=== PATIENT | male | born 1945 | race African-American/Black ===

== ENCOUNTER 2022-02-21 19:25 | Inpatient (IN) ==
--- NOTE | 2022-02-21 19:51 | DR.SOBA ---
HPI Time Seen Time Seen by Provider: 02/21/22 19:51 Reviewed Nurses Notes Reviewed: Yes PE Vital Signs Vitals: Temperature 98.9 F Pulse Rate 72 Respiratory Rate 22 Blood Pressure 140/69 O2 Sat by Pulse Oximetry 96 ROR Labs Reviewed Result Diagrams: 02/21/22 19:50 02/21/22 19:50 Laboratory: WBC 5.4 X10^3/uL (3.6-10.0) 02/21/22 19:50 RBC 3.93 X10^6/uL (4.7-6.0) L 02/21/22 19:50 Hgb 11.6 g/dL (13.5-18.0) L 02/21/22 19:50 Hct 33.2 % (42.0-54.0) L 02/21/22 19:50 MCV 84.5 fL (80.0-100.0) 02/21/22 19:50 MCH 29.6 pg (27.0-34.0) 02/21/22 19:50 MCHC 35.0 g/dL (33.0-35.0) 02/21/22 19:50 RDW 20.4 % (11.6-16.5) H 02/21/22 19:50 Plt Count 345 X10^3/uL (150.0-450.0) 02/21/22 19:50 Plt Count Comment Adequate (ADEQUATE) 02/21/22 19:50 MPV 8.0 fL (7.4-11.0) 02/21/22 19:50 Neut % (Auto) 61.1 % (42.0-75.0) 02/21/22 19:50 Lymph % (Auto) 34.0 % (21.0-51.0) 02/21/22 19:50 [place] % (Auto) 3.7 % (0.0-13.0) 02/21/22 19:50 Eos % (Auto) 1.2 % (0.9-2.9) 02/21/22 19:50 Baso % (Auto) 0 % (0.2-1.0) L 02/21/22 19:50 Neut # (Auto) 3.3 x10^3/uL (2.2-4.8) 02/21/22 19:50 Lymph # (Auto) 1.9 X10^3/uL (1.3-2.9) 02/21/22 19:50 [place] # (Auto) 0.2 x10^3/uL (0.3-0.8) L 02/21/22 19:50 Eos # (Auto) 0.1 x10^3/uL (0.0-0.2) 02/21/22 19:50 Baso # (Auto) 0.0 X10^3/uL (0.0-0.1) 02/21/22 19:50 Absolute Nucleated RBC 0.2 /100WBC 02/21/22 19:50 Plt Morphology Comment Normal (NORMAL) 02/21/22 19:50 RBC Morphology Abnormal (NORMAL) 02/21/22 19:50 Anisocytosis 1+ A 02/21/22 19:50 Target Cells 3+ A 02/21/22 19:50 D-Dimer 2.07 ug/ml (0.0-0.57) H 02/21/22 19:50 Sample Site Rrad 02/21/22 20:03 ABG pH 7.580 (7.35-7.45) H* 02/21/22 20:03 ABG pCO2 29.0 mmHg (35.0-45.0) L 02/21/22 20:03 ABG pO2 53.0 mmHg (80.0-100.0) L 02/21/22 20:03 ABG HCO3 27.2 mmol/L (22-26) H 02/21/22 20:03 ABG O2 Saturation 92.0 % (90-100) 02/21/22 20:03 ABG Base Excess 5.8 mmol/L (-2.0-2.0) H 02/21/22 20:03 Giovanni Test Pos 02/21/22 20:03 A-a Gradient 60.0 mmHg 02/21/22 20:03 FiO2 21.0 02/21/22 20:03 Blood Gas Comments Antonella well-mtf 02/21/22 20:03 Sodium 131 mmol/L (136-145) L 02/21/22 19:50 Corrected Sodium TNP 02/21/22 19:50 Potassium 3.9 mmol/L (3.5-5.1) 02/21/22 19:50 Chloride 96 mmol/L (98-107) L 02/21/22 19:50 Carbon Dioxide 26.1 mmol/L (21-32) 02/21/22 19:50 BUN 16 mg/dL (7-18) 02/21/22 19:50 Creatinine 0.91 mg/dL (0.70-1.30) 02/21/22 19:50 Est GFR (MDRD) Af Amer > 60 (>60) 02/21/22 19:50 Est GFR (MDRD) Non-Af > 60 (>60) 02/21/22 19:50 Glucose 98 mg/dL (65-99) 02/21/22 19:50 Calcium 7.8 mg/dL (8.5-10.1) L 02/21/22 19:50 Corrected Calcium 9.2 mg/dL (8.5-10.1) 02/21/22 19:50 Total Bilirubin 3.40 mg/dL (0.2-1.0) H 02/21/22 19:50 AST 161 Units/L (15-37) H 02/21/22 19:50 ALT 127 Units/L (12-78) H 02/21/22 19:50 Alkaline Phosphatase 412 Units/L (46-116) H 02/21/22 19:50 Creatine Kinase 209 Units/L (39-308) 02/21/22 19:50 Troponin I High Sens 14.9 ng/L (4.0-60.0) 02/21/22 19:50 Total Protein 6.2 g/dL (6.4-8.2) L 02/21/22 19:50 Albumin 2.3 g/dL (3.4-5.0) L 02/21/22 19:50 Globulin 3.9 g/dL (2.5-4.5) 02/21/22 19:50 Albumin/Globulin Ratio 0.6 Ratio (1.1-2.1) L 02/21/22 19:50 SARS-CoV-2 (PCR) Negative (NEGATIVE) 02/22/22 00:19 Influenza Type A (PCR) Negative (NEGATIVE) 02/22/22 00:19 Influenza Type B (PCR) Negative (NEGATIVE) 02/22/22 00:19 RSV (PCR) Negative (NEGATIVE) 02/22/22 00:19 Opioid Opioid Risk Tool Total: 0 Total Score Risk Category: Low Risk Copyright: Sandeep OCHOA predicting aberrant behaviors Discharge Plan Discharge Plan Patient Disposition: 09 ADMITTED INPATIENT Condition: Stable Orders to Discharge Patient Discharge Orders: Transfer (Routine); Ordered 02/22/22 Ordered By: MOISES COLBERT
[2022-02-21 20:02] LABS: BASOPHILS % (AUTO) 0 % (0.2-1.0)
[2022-02-21 20:05] LABS: EOSINOPHILS # (AUTO) 0.1 x10^3/uL (0.0-0.2); EOSINOPHILS % (AUTO) 1.2 % (0.9-2.9); HEMATOCRIT 33.2 % (42.0-54.0); HEMOGLOBIN 11.6 g/dL (13.5-18.0); LYMPHOCYTES # (AUTO) 1.9 X10^3/uL (1.3-2.9); MEAN CORPUSCULAR HEMOGLOBIN 29.6 pg (27.0-34.0); MEAN CORPUSCULAR VOLUME 84.5 fL (80.0-100.0); MONOCYTES # (AUTO) 0.2 x10^3/uL (0.3-0.8); MONOCYTES % (AUTO) 3.7 % (0.0-13.0); NEUTROPHILS # (AUTO) 3.3 x10^3/uL (2.2-4.8); NEUTROPHILS % (AUTO) 61.1 % (42.0-75.0); RED BLOOD COUNT 3.93 X10^6/uL (4.7-6.0); RED CELL DISTRIBUTION WIDTH 20.4 % (11.6-16.5); WHITE BLOOD COUNT 5.4 X10^3/uL (3.6-10.0)
[2022-02-21 20:06] LABS: ABG BASE EXCESS 5.8 mmol/L (-2.0-2.0); ABG HCO3 27.2 mmol/L (22-26)
[2022-02-21 20:07] LABS: ABG ALLEN TEST POS
[2022-02-21 20:12] LABS: ALANINE AMINOTRANSFERASE 127 Units/L (12-78); ALBUMIN 2.3 g/dL (3.4-5.0); ALKALINE PHOSPHATASE 412 Units/L (46-116); ASPARTATE AMINO TRANSFERASE 161 Units/L (15-37); BLOOD UREA NITROGEN 16 mg/dL (7-18); CALCIUM 7.8 mg/dL (8.5-10.1); CARBON DIOXIDE 26.1 mmol/L (21-32); CHLORIDE 96 mmol/L (98-107); COR CA(FOR HYPOALB) 9.2 mg/dL (8.5-10.1); CREATINE KINASE 209 Units/L (39-308); CREATININE 0.91 mg/dL (0.70-1.30); SODIUM 131 mmol/L (136-145); TOTAL PROTEIN 6.2 g/dL (6.4-8.2); eGFR NON BLACK RACES > 60 (>60)
[2022-02-21 20:15] LABS: PLATELET MORPHOLOGY COMMENT NORMAL (NORMAL); TARGET CELLS 3+
[2022-02-21 20:16] LABS: ANISOCYTOSIS 1+
--- NOTE | 2022-02-21 22:52 | CT ---
HISTORYC/O INCREASING SHORTNESS OF BREATH OVER THE PAST WEEK, STATES IT STARTED BACK IN 12/2021 BUT HAS WORSENEDSTUDYCTA CHESTCOMPARISONChest radiograph 02/21/2022TECHNIQUEMultiple axial images of the chest were obtained from the thoracic inlet to the upper abdomen after the administration of IV contrast. 3D reconstructions utilizing axial MIPS imaging was performed and reviewed. Dose reduction techniques including Automated Exposure Control (AEC) and adjustment of mA and kV were utilized.FINDINGSThe mediastinum does not demonstrate significant pathological lymphadenopathy. There is no paracardial effusion observed. The thoracic aorta is normal in its contour without evidence for aneurysmal dilatation. The central pulmonary arterial system does not demonstrate central filling defects to suggest pulmonary emboli.Evaluation of the lung parenchyma demonstrates emphysematous changes throughout the lungs with scattered interstitial fibrosis. No pneumothorax.. No pulmonary nodule or mass can be identified. The bony thorax is unremarkable in its appearance. The liver appears enlarged. The.IMPRESSIONUnremarkable CTA of the chest.Emphysematous changes throughout the lungs with scattered interstitial fibrosis.HepatomegalyElectronically signed by: Bandar Ramírez (Feb 21, 2022 22:50:48)
[2022-02-22] MEDS ORDERED: CATAPRES TAB 0.2 MG PO ONE (00:58)
[2022-02-22] MEDS ORDERED: CATAPRES TAB 0.2 MG ONE (01:09)
[2022-02-22] MEDS ORDERED: ROCEPHIN VIAL 1 GRAM 1 G in NS 100 ML IV 100 ML IV ONE (02:29)
[2022-02-22] MEDS ORDERED: ROCEPHIN VIAL 1 GRAM ONE (02:39)
[2022-02-22] MEDS ORDERED: NS 50 ML IV 50 ML IV ONE (02:40)
--- NOTE | 2022-02-22 03:47 | RAD ---
HISTORYPT C/O INCREASING SHORTNESS OF BREATH OVER THE PAST WEEK, STATES IT STARTED BACK IN 12/2021 BUT HAS WORSENED Relevant Clinical InformationSTUDYCHEST, 1 VIEWCOMPARISONNoneFINDINGSThe trachea is midline. The cardiac silhouette is unremarkable. The lungs are clear without focal infiltrate or effusion. The there is mild elevation of the right hemidiaphragm the bony thorax is unremarkable.IMPRESSIONNo acute cardiopulmonary findings .Electronically signed by: Bandar Ramírez (Feb 22, 2022 03:46:15)
[2022-02-22 04:41] VITALS: BMI 17.7
[2022-02-22] MEDS: PROVENTIL NEB TX 0.083% 2.5MG/ 3ML NEB SCH ×5 (05:00→20:20)
[2022-02-22] MEDS: NS 1,000 ML IV 1,000 ML IV SCH (06:34)
[2022-02-22 07:03] LABS: BLOOD UREA NITROGEN 17 mg/dL (7-18); CALCIUM 7.7 mg/dL (8.5-10.1); CARBON DIOXIDE 26.9 mmol/L (21-32); CHLORIDE 96 mmol/L (98-107); COR NA(FOR HYPERGLY) 131 mmol/L (136-145); CREATININE 0.92 mg/dL (0.70-1.30); SODIUM 130 mmol/L (136-145); eGFR NON BLACK RACES > 60 (>60)
[2022-02-22 07:07] LABS: BASOPHILS % (AUTO) 0 % (0.2-1.0); EOSINOPHILS % (AUTO) 0.6 % (0.9-2.9); HEMATOCRIT 30.5 % (42.0-54.0); HEMOGLOBIN 10.8 g/dL (13.5-18.0); LYMPHOCYTES % (AUTO) 58.7 % (21.0-51.0); MEAN CORPUSCULAR HEMOGLOBIN 30.1 pg (27.0-34.0); MEAN CORPUSCULAR HGB CONC 35.3 g/dL (33.0-35.0); MEAN CORPUSCULAR VOLUME 85.5 fL (80.0-100.0); MEAN PLATELET VOLUME 8.3 fL (7.4-11.0); MONOCYTES # (AUTO) 0.3 x10^3/uL (0.3-0.8); MONOCYTES % (AUTO) 6.1 % (0.0-13.0); NEUTROPHILS # (AUTO) 1.7 x10^3/uL (2.2-4.8); NEUTROPHILS % (AUTO) 34.6 % (42.0-75.0); RED BLOOD COUNT 3.57 X10^6/uL (4.7-6.0); RED CELL DISTRIBUTION WIDTH 21.4 % (11.6-16.5)
[2022-02-22 07:31] LABS: ANISOCYTOSIS 1+; PLATELET MORPHOLOGY COMMENT NORMAL (NORMAL); TARGET CELLS 3+
[2022-02-22] MEDS: VSL#3 PO SCH (08:27)
[2022-02-22] MEDS: PULMICORT NEB TX 0.5 MG NEB SCH ×2 (08:29→20:20)
[2022-02-22] MEDS ORDERED: K-DUR TAB 20 MEQ PO PRN (08:54)
--- NOTE | 2022-02-22 10:01 | RAD ---
HISTORYAbdominal painSTUDYAcute abdominal fegmpsAZRGICFPPC70/19/2022FINDINGSHeart size is normal. Diana are normal. Lungs are free of acute infiltrates. Abdominal gas pattern is nonspecific and nonobstructive. No abnormal masses or abnormal calcifications are identified. No pneumoperitoneum is present. Contrast is present within the urinary tracts residual to the recent CTA chest.IMPRESSIONUnremarkable acute abdominal seriesElectronically signed by: JESSICA RAYMUNDO (Feb 22, 2022 09:58:49)
[2022-02-22] MEDS: LOVENOX INJ 40 MG SYR SC SCH (10:09)
[2022-02-22] MEDS: NORVASC TAB 5 MG PO SCH (10:09)
[2022-02-22] MEDS: BENICAR TAB 40 MG PO SCH (10:09)
[2022-02-22] MEDS ORDERED: COLACE CAP 100 MG PO ONE (13:36)
[2022-02-22] MEDS ORDERED: LINZESS PO ONE (13:37)
[2022-02-22] MEDS: FORTAZ or TAZICEF VIAL INJ 1 G in NS 100 ML IV 100 ML IV SCH ×2 (13:46→21:00)
[2022-02-22] MEDS ORDERED: FORTAZ or TAZICEF VIAL INJ 1 G in NS 100 ML IV + SPIKE MINIBAG* 100 ML IV SCH (14:00)
[2022-02-22] MEDS ORDERED: ZOFRAN INJ 4 MG VIAL IVP PRN (18:17)
[2022-02-23] MEDS: PROVENTIL NEB TX 0.083% 2.5MG/ 3ML NEB SCH ×6 (00:28→21:01)
[2022-02-23] MEDS: NS 1,000 ML IV 1,000 ML IV SCH ×3 (05:56→07:17)
[2022-02-23] MEDS: FORTAZ or TAZICEF VIAL INJ 1 G in NS 100 ML IV 100 ML IV SCH (05:56)
[2022-02-23 06:10] LABS: BILIRUBIN,URINE 2+ (NEGATIVE); BLOOD/HEMOGLOBIN,URINE 2+ (NEGATIVE); GLUCOSE, URINE NEGATIVE (NEGATIVE); KETONES,URINE 1+ (NEGATIVE); LEUKOCYTE ESTERASE ,URINE 1+ (NEGATIVE); NITRITES,URINE NEGATIVE (NEGATIVE); PROTEIN,URINE 3+ (NEGATIVE); UROBILINOGEN,URINE 2+ (NORMAL)
[2022-02-23 06:21] LABS: BASOPHILS % (AUTO) 0 % (0.2-1.0); EOSINOPHILS # (AUTO) 0.1 x10^3/uL (0.0-0.2); EOSINOPHILS % (AUTO) 1.1 % (0.9-2.9); HEMOGLOBIN 10.6 g/dL (13.5-18.0); LYMPHOCYTES # (AUTO) 2.9 X10^3/uL (1.3-2.9); LYMPHOCYTES % (AUTO) 57.1 % (21.0-51.0); MEAN CORPUSCULAR HEMOGLOBIN 30.2 pg (27.0-34.0); MEAN CORPUSCULAR HGB CONC 35.3 g/dL (33.0-35.0); MEAN CORPUSCULAR VOLUME 85.5 fL (80.0-100.0); MEAN PLATELET VOLUME 8.5 fL (7.4-11.0); MONOCYTES # (AUTO) 0.5 x10^3/uL (0.3-0.8); MONOCYTES % (AUTO) 9.9 % (0.0-13.0); NEUTROPHILS # (AUTO) 1.6 x10^3/uL (2.2-4.8); NEUTROPHILS % (AUTO) 31.9 % (42.0-75.0); RED BLOOD COUNT 3.51 X10^6/uL (4.7-6.0); RED CELL DISTRIBUTION WIDTH 21.5 % (11.6-16.5)
[2022-02-23 06:43] LABS: ALANINE AMINOTRANSFERASE 124 Units/L (12-78); ALBUMIN 2.1 g/dL (3.4-5.0); ALKALINE PHOSPHATASE 377 Units/L (46-116); ASPARTATE AMINO TRANSFERASE 160 Units/L (15-37); BLOOD UREA NITROGEN 16 mg/dL (7-18); CALCIUM 7.6 mg/dL (8.5-10.1); CARBON DIOXIDE 22.8 mmol/L (21-32); CHLORIDE 98 mmol/L (98-107); COR CA(FOR HYPOALB) 9.1 mg/dL (8.5-10.1); CREATININE 0.94 mg/dL (0.70-1.30); SODIUM 129 mmol/L (136-145); TOTAL PROTEIN 5.6 g/dL (6.4-8.2); eGFR NON BLACK RACES > 60 (>60)
[2022-02-23 06:48] LABS: APPEARANCE,URINE HAZY (CLEAR); COLOR,URINE AMBER (YELLOW)
[2022-02-23 06:49] LABS: BACTERIA,URINE TRACE /HPF (NEGATIVE); SQUAMOUS EPITHELIAL CELL,UR RARE /HPF (NEGATIVE)
[2022-02-23 07:18] LABS: ANISOCYTOSIS 1+; OVALOCYTES 3+; PLATELET MORPHOLOGY COMMENT NORMAL (NORMAL)
[2022-02-23] MEDS: PULMICORT NEB TX 0.5 MG NEB SCH ×2 (08:15→21:00)
[2022-02-23] MEDS: VSL#3 PO SCH (08:35)
[2022-02-23] MEDS: NORVASC TAB 5 MG PO SCH (08:35)
[2022-02-23] MEDS: BENICAR TAB 40 MG PO SCH (08:35)
[2022-02-23] MEDS: LOVENOX INJ 40 MG SYR SC SCH (08:53)
[2022-02-23] MEDS ORDERED: LINZESS PO SCH (09:00)
[2022-02-23] MEDS ORDERED: SOLU-Medrol 40 MG VIAL IVP SCH (09:00)
[2022-02-23] MEDS: BACTRIM DS TAB PO SCH ×2 (09:38→20:30)
--- NOTE | 2022-02-23 10:30 | US ---
HISTORYABD PAIN/BLOATING/SWELLING, NAUSEASTUDYLIVERCOMPARISONChest CT 02/21/2022TECHNIQUEEighty-four images made by the chinchilla machine operator. Hyman scale and color-flow images of the right upper quadrant were obtained.FINDINGSDiffuse heterogenous echogenicity is present throughout an enlarged liver. This could represent diffuse medical liver disease or could be a diffuse infiltrative malignancy. Finding corresponds to the heterogenous density seen on the CT from 2 days ago. Two discrete nodules or masses are measured by the technologist. Liver measures over 23 cm. Recommend additional evaluation with a contrasted study; you could do CT with contrast or MRI with contrast. No biliary dilatation. The intrahepatic inferior vena cava was imaged.The visualized hepatic veins are patent with blood flow toward the right atrium. The hepatic artery was patent. The portal vein is patent with blood flow toward the liver.The pancreas is not well identified due to overlying bowel gas.Echogenic areas with shadowing are present compatible with gallstones. No wall thickening or pericholecystic fluid. There is also medium level echogenic debris consistent with sludge. No extrahepatic biliary duct dilatation; common duct is normal.The right kidney is normal in size and echogenicity. No hydronephrosis. Right resistive index measures 0.5. Simple cyst right kidney measures 2 cm.IMPRESSION1. Diffuse abnormal liver; this might represent diffuse malignant infiltration or medical liver disease such as cirrhosis or hepatitis2. Recommend additional evaluation with contrasted CT or contrasted MRI of the liver3. CholelithiasisElectronically signed by: Doyle Waldrop (Feb 23, 2022 10:28:27)
[2022-02-23] MEDS ORDERED: PEPCID TAB 40 MG PO PRN (16:47)
[2022-02-23] MEDS ORDERED: PEPCID TAB 40 MG ONE (16:49)
[2022-02-24] MEDS: PROVENTIL NEB TX 0.083% 2.5MG/ 3ML NEB SCH ×6 (00:16→21:00)
[2022-02-24] MEDS: NS 1,000 ML IV 1,000 ML IV SCH ×2 (05:33→12:28)
[2022-02-24 06:45] LABS: ALANINE AMINOTRANSFERASE 121 Units/L (12-78); ALKALINE PHOSPHATASE 372 Units/L (46-116); ASPARTATE AMINO TRANSFERASE 166 Units/L (15-37); BLOOD UREA NITROGEN 13 mg/dL (7-18); CALCIUM 7.7 mg/dL (8.5-10.1); CARBON DIOXIDE 21.9 mmol/L (21-32); CHLORIDE 98 mmol/L (98-107); COR CA(FOR HYPOALB) 9.3 mg/dL (8.5-10.1); CREATININE 0.99 mg/dL (0.70-1.30); SODIUM 129 mmol/L (136-145); TOTAL PROTEIN 5.5 g/dL (6.4-8.2); eGFR NON BLACK RACES > 60 (>60)
[2022-02-24 07:28] LABS: BASOPHILS % (AUTO) 0 % (0.2-1.0); EOSINOPHILS # (AUTO) 0.1 x10^3/uL (0.0-0.2); HEMATOCRIT 29.8 % (42.0-54.0); HEMOGLOBIN 10.6 g/dL (13.5-18.0); LYMPHOCYTES # (AUTO) 3.2 X10^3/uL (1.3-2.9); LYMPHOCYTES % (AUTO) 59.1 % (21.0-51.0); MEAN CORPUSCULAR HEMOGLOBIN 30.2 pg (27.0-34.0); MEAN CORPUSCULAR HGB CONC 35.5 g/dL (33.0-35.0); MEAN CORPUSCULAR VOLUME 85.1 fL (80.0-100.0); MEAN PLATELET VOLUME 8.8 fL (7.4-11.0); MONOCYTES # (AUTO) 0.4 x10^3/uL (0.3-0.8); MONOCYTES % (AUTO) 8.4 % (0.0-13.0); NEUTROPHILS # (AUTO) 1.7 x10^3/uL (2.2-4.8); NEUTROPHILS % (AUTO) 31.5 % (42.0-75.0); RED CELL DISTRIBUTION WIDTH 21.2 % (11.6-16.5); WHITE BLOOD COUNT 5.4 X10^3/uL (3.6-10.0)
[2022-02-24 07:35] LABS: RED BLOOD COUNT 3.51 X10^6/uL (4.7-6.0)
[2022-02-24 07:39] LABS: ANISOCYTOSIS 1+; PLATELET MORPHOLOGY COMMENT NORMAL (NORMAL); TARGET CELLS 3+
[2022-02-24] MEDS: PULMICORT NEB TX 0.5 MG NEB SCH ×2 (08:22→21:00)
--- NOTE | 2022-02-24 08:54 | DR.PROGNOT ---
Hospital Progress Notes - Progress Note for Day of: Progress Note Date: 02/24/22 - Chief Complaint Chief Complaint: no changes .. same abdominal pain , distention with hepatomegaly and liver dysfunction .. - Past Medical Family Social History Past Med/Fam/Surg Hx: No changes since H&P Allergies: Allergies No Known Drug Allergies Allergy (Verified 02/21/22 19:56) - Review Of Systems ROS: No change since H&P - Vital Signs Vital Signs: Temperature 98.1 F Pulse Rate [Right] 83 Pulse Rate 78 Respiratory Rate 20 Blood Pressure [Left Arm] 142/69 Blood Pressure 140/69 O2 Sat by Pulse Oximetry 94 - Physical Exam Oriented: Normal Eyes: Normal Ear: Normal Nose: Normal Throat: Normal Cardiovascular: Normal : Normal GI:Auscultation: Normal GI: Tenderness: Other (hepatomegaly and small umbilical hernia .. ) Speech Pattern: Clear, Appropriate - Laboratory and Diagnostics Result Diagrams: 02/24/22 05:29 02/24/22 05:29 Labs: Laboratory WBC 5.4 X10^3/uL (3.6-10.0) 02/24/22 05:29 RBC 3.51 X10^6/uL (4.7-6.0) L 02/24/22 05:29 Hgb 10.6 g/dL (13.5-18.0) L 02/24/22 05:29 Hct 29.8 % (42.0-54.0) L 02/24/22 05:29 MCV 85.1 fL (80.0-100.0) 02/24/22 05:29 MCH 30.2 pg (27.0-34.0) 02/24/22 05:29 MCHC 35.5 g/dL (33.0-35.0) H 02/24/22 05:29 RDW 21.2 % (11.6-16.5) H 02/24/22 05:29 Plt Count 339 X10^3/uL (150.0-450.0) 02/24/22 05:29 Plt Count Comment Adequate (ADEQUATE) 02/24/22 05:29 MPV 8.8 fL (7.4-11.0) 02/24/22 05:29 Neut % (Auto) 31.5 % (42.0-75.0) L 02/24/22 05:29 Lymph % (Auto) 59.1 % (21.0-51.0) H 02/24/22 05:29 [place] % (Auto) 8.4 % (0.0-13.0) 02/24/22 05:29 Eos % (Auto) 1.0 % (0.9-2.9) 02/24/22 05:29 Baso % (Auto) 0 % (0.2-1.0) L 02/24/22 05:29 Neut # (Auto) 1.7 x10^3/uL (2.2-4.8) L 02/24/22 05:29 Lymph # (Auto) 3.2 X10^3/uL (1.3-2.9) H 02/24/22 05:29 [place] # (Auto) 0.4 x10^3/uL (0.3-0.8) 02/24/22 05:29 Eos # (Auto) 0.1 x10^3/uL (0.0-0.2) 02/24/22 05:29 Baso # (Auto) 0.0 X10^3/uL (0.0-0.1) 02/24/22 05:29 Absolute Nucleated RBC 0.3 /100WBC 02/24/22 05:29 Total Counted 100 02/24/22 05:29 Neutrophils % (Manual) 77 % (39-76) H 02/24/22 05:29 Lymphocytes % (Manual) 16 % (13-43) 02/24/22 05:29 Monocytes % (Manual) 5 % (4-9) 02/24/22 05:29 Eosinophils % (Manual) 2 % (0-6) 02/24/22 05:29 Plt Morphology Comment Normal (NORMAL) 02/24/22 05:29 RBC Morphology Abnormal (NORMAL) 02/24/22 05:29 Anisocytosis 1+ A 02/24/22 05:29 Target Cells 3+ A 02/24/22 05:29 Ovalocytes 3+ A 02/23/22 05:45 D-Dimer 2.07 ug/ml (0.0-0.57) H 02/21/22 19:50 Sample Site Rrad 02/21/22 20:03 ABG pH 7.580 (7.35-7.45) H* 02/21/22 20:03 ABG pCO2 29.0 mmHg (35.0-45.0) L 02/21/22 20:03 ABG pO2 53.0 mmHg (80.0-100.0) L 02/21/22 20:03 ABG HCO3 27.2 mmol/L (22-26) H 02/21/22 20:03 ABG O2 Saturation 92.0 % (90-100) 02/21/22 20:03 ABG Base Excess 5.8 mmol/L (-2.0-2.0) H 02/21/22 20:03 Giovanni Test Pos 02/21/22 20:03 A-a Gradient 60.0 mmHg 02/21/22 20:03 FiO2 21.0 02/21/22 20:03 Blood Gas Comments Antonella well-mtf 02/21/22 20:03 Sodium 129 mmol/L (136-145) L 02/24/22 05:29 Corrected Sodium TNP 02/24/22 05:29 Potassium 4.1 mmol/L (3.5-5.1) 02/24/22 05:29 Chloride 98 mmol/L (98-107) 02/24/22 05:29 Carbon Dioxide 21.9 mmol/L (21-32) 02/24/22 05:29 BUN 13 mg/dL (7-18) 02/24/22 05:29 Creatinine 0.99 mg/dL (0.70-1.30) 02/24/22 05:29 Est GFR (MDRD) Af Amer > 60 (>60) 02/24/22 05:29 Est GFR (MDRD) Non-Af > 60 (>60) 02/24/22 05:29 Glucose 81 mg/dL (65-99) 02/24/22 05:29 Calcium 7.7 mg/dL (8.5-10.1) L 02/24/22 05:29 Corrected Calcium 9.3 mg/dL (8.5-10.1) 02/24/22 05:29 Iron 104 ug/dL (50-175) 02/22/22 06:46 Transferrin 220 mg/dL (202-364) 02/22/22 06:46 Ferritin 528 ng/mL (26-388) H 02/22/22 06:46 Total Bilirubin 3.30 mg/dL (0.2-1.0) H 02/24/22 05:29 AST 166 Units/L (15-37) H 02/24/22 05:29 ALT 121 Units/L (12-78) H 02/24/22 05:29 Alkaline Phosphatase 372 Units/L (46-116) H 02/24/22 05:29 Creatine Kinase 209 Units/L (39-308) 02/21/22 19:50 Troponin I High Sens 14.9 ng/L (4.0-60.0) 02/21/22 19:50 Total Protein 5.5 g/dL (6.4-8.2) L 02/24/22 05:29 Albumin 2.0 g/dL (3.4-5.0) L 02/24/22 05:29 Globulin 3.5 g/dL (2.5-4.5) 02/24/22 05:29 Albumin/Globulin Ratio 0.6 Ratio (1.1-2.1) L 02/24/22 05:29 Vitamin B12 1218 pg/mL (193-986) H 02/22/22 06:46 Folate 14.2 ng/mL (>8.6) 02/22/22 06:46 Specimen Type Clean catch urine 02/23/22 05:52 Urine Color Lurdes (YELLOW) 02/23/22 05:52 Urine Appearance Hazy (CLEAR) 02/23/22 05:52 Urine pH 6.0 (5.0 - 8.0) 02/23/22 05:52 Ur Specific [place] 1.020 (1.000-1.030) 02/23/22 05:52 Urine Protein 3+ (NEGATIVE) 02/23/22 05:52 Urine Glucose (UA) Negative (NEGATIVE) 02/23/22 05:52 Urine Ketones 1+ (NEGATIVE) 02/23/22 05:52 Urine Blood 2+ (NEGATIVE) 02/23/22 05:52 Urine Nitrite Negative (NEGATIVE) 02/23/22 05:52 Urine Bilirubin 2+ (NEGATIVE) 02/23/22 05:52 Urine Urobilinogen 2+ (NORMAL) 02/23/22 05:52 Ur Leukocyte Esterase 1+ (NEGATIVE) 02/23/22 05:52 Urine RBC 3-5 /HPF (0-3) A 02/23/22 05:52 Urine WBC 0-2 /HPF (0-5) 02/23/22 05:52 Ur Squamous Epith Cells Rare /HPF (NEGATIVE) 02/23/22 05:52 Amorphous Sediment 1+ /HPF (NEGATIVE) 02/23/22 05:52 Urine Bacteria Trace /HPF (NEGATIVE) 02/23/22 05:52 Ur Culture Indicated? No/not indicated 02/23/22 05:52 Stool Description 250g liquid brown 02/22/22 20:01 Stl Occult Blood (IFOB) Positive (NEGATIVE) A 02/22/22 20:01 SARS-CoV-2 (PCR) Negative (NEGATIVE) 02/22/22 00:19 Influenza Type A (PCR) Negative (NEGATIVE) 02/22/22 00:19 Influenza Type B (PCR) Negative (NEGATIVE) 02/22/22 00:19 RSV (PCR) Negative (NEGATIVE) 02/22/22 00:19 - Assessment and Plan 2: hepatomegaly rule out primary malignanccy .( h/o hepatitis C ). gallstones . COPD . mild anemia .. awaiting MRI . will need liver Bx
[2022-02-24] MEDS ORDERED: NS 100 ML IV 100 ML ONE (10:18)
[2022-02-24] MEDS: BACTRIM DS TAB PO SCH ×2 (10:34→20:06)
[2022-02-24] MEDS: VSL#3 PO SCH (10:35)
[2022-02-24] MEDS: LOVENOX INJ 40 MG SYR SC SCH (10:36)
[2022-02-24] MEDS: BENICAR TAB 40 MG PO SCH (10:36)
[2022-02-24] MEDS: NORVASC TAB 5 MG PO SCH (10:36)
--- NOTE | 2022-02-24 16:48 | MRI ---
MRI ABDOMEN W/WO CONTRASTClinical indication: Abdominal pain.Procedure: Multiplanar multi sequence MRI of the abdomen were obtained with and without the administration of intravenous contrast according to standard departmental protocol.Contrast: 20 cc of MultiHanceComparisons:Ultrasound February 22, 2022, CT chest February 21, 2022.Findings:MRI of the abdomen without contrast: Small volume mesenteric edema/ascites. No significant ascites.MRI of the abdomen with contrast: The liver is massively enlarged essentially completely replaced by innumerable heterogeneously enhancing masses. Liver measures 27 cm in craniocaudal dimension. Spleen not enlarged. What is possibly the gallbladder appears to be elongated and contains sludge. This measures 4.6 cm in axial dimension. No definite gallstones. Gallbladder sludge is suspected. There is intrahepatic ductal dilatation which is most notable involving the left liver. This may be secondary to less metastatic involvement of the left liver in general. The common bile duct is difficult to visualize and may be obstructed at the region just distal to its confluence. This can best be appreciated on series 06/10/2002. Visualized portions of the pancreas are within normal limits. Adrenal glands are normal. Kidneys demonstrate normal cortical medullary differentiation. No hydronephrosis. Infrarenal abdominal aortic aneurysm measuring 2.8 cm.Impression:1.Massive hepatomegaly with essentially near complete replacement of the hepatic parenchyma with heterogeneously enhancing masses. This will likely require biopsy for definitive diagnosis however cholangiocarcinoma should be considered given the ductal obstruction. The common bile duct is not well seen and there is likely obstruction of this structure also evidence by intrahepatic ductal dilatation.2. Mild aneurysmal dilatation of the infrarenal abdominal aorta.Electronically signed by: JAZLYN VARELA (Feb 24, 2022 16:47:31)
[2022-02-24] MEDS: COLACE CAP 100 MG PO SCH (20:06)
[2022-02-24] MEDS: MIRALAX POWDER (1 DOSE 17 G) PO SCH (20:06)
[2022-02-25] MEDS: PROVENTIL NEB TX 0.083% 2.5MG/ 3ML NEB SCH ×6 (00:48→21:20)
[2022-02-25] MEDS: NS 1,000 ML IV 1,000 ML IV SCH ×4 (05:41→16:40)
[2022-02-25 06:08] LABS: ALANINE AMINOTRANSFERASE 124 Units/L (12-78); ALKALINE PHOSPHATASE 372 Units/L (46-116); ASPARTATE AMINO TRANSFERASE 182 Units/L (15-37); BLOOD UREA NITROGEN 14 mg/dL (7-18); CALCIUM 7.6 mg/dL (8.5-10.1); CARBON DIOXIDE 24.5 mmol/L (21-32); CHLORIDE 99 mmol/L (98-107); COR CA(FOR HYPOALB) 9.2 mg/dL (8.5-10.1); CREATININE 1.09 mg/dL (0.70-1.30); SODIUM 130 mmol/L (136-145); TOTAL PROTEIN 5.5 g/dL (6.4-8.2); eGFR NON BLACK RACES > 60 (>60)
[2022-02-25 06:11] LABS: BASOPHILS % (AUTO) 0 % (0.2-1.0); EOSINOPHILS # (AUTO) 0.1 x10^3/uL (0.0-0.2); EOSINOPHILS % (AUTO) 1.1 % (0.9-2.9); HEMATOCRIT 30.8 % (42.0-54.0); HEMOGLOBIN 10.9 g/dL (13.5-18.0); LYMPHOCYTES % (AUTO) 54.3 % (21.0-51.0); MEAN CORPUSCULAR HEMOGLOBIN 30.1 pg (27.0-34.0); MEAN CORPUSCULAR HGB CONC 35.4 g/dL (33.0-35.0); MEAN CORPUSCULAR VOLUME 85.1 fL (80.0-100.0); MEAN PLATELET VOLUME 8.2 fL (7.4-11.0); MONOCYTES # (AUTO) 0.4 x10^3/uL (0.3-0.8); MONOCYTES % (AUTO) 7.9 % (0.0-13.0); NEUTROPHILS % (AUTO) 36.7 % (42.0-75.0); RED BLOOD COUNT 3.62 X10^6/uL (4.7-6.0); RED CELL DISTRIBUTION WIDTH 22.2 % (11.6-16.5); WHITE BLOOD COUNT 5.5 X10^3/uL (3.6-10.0)
[2022-02-25 06:40] LABS: PLATELET MORPHOLOGY COMMENT NORMAL (NORMAL)
[2022-02-25 06:42] LABS: ANISOCYTOSIS 2+; TARGET CELLS 3+
[2022-02-25] MEDS ORDERED: TORADOL 30 MG VIAL IVP PRN (07:45)
[2022-02-25] MEDS: PULMICORT NEB TX 0.5 MG NEB SCH ×2 (08:05→21:20)
[2022-02-25 08:16] LABS: INR 1.27 (0.8-1.3)
[2022-02-25] MEDS ORDERED: ZOFRAN INJ 4 MG VIAL ONE (08:59)
[2022-02-25] MEDS ORDERED: PEPCID 20 MG VIAL ONE (08:59)
[2022-02-25] MEDS ORDERED: BRIDION ONE (08:59)
[2022-02-25] MEDS ORDERED: AMIDATE INJ 40 MG VIAL ONE (08:59)
[2022-02-25] MEDS ORDERED: ZEMURON 100 MG VIAL ONE (08:59)
[2022-02-25] MEDS ORDERED: VERSED ONE (09:00)
[2022-02-25] MEDS ORDERED: FENTANYL VIAL INJ 100 mcg ONE (09:00)
[2022-02-25] MEDS: ANCEF VIAL 1 GRAM ONE ×2 (09:51→14:12)
[2022-02-25] MEDS ORDERED: LR 1,000 ML IV 1,000 ML IV ONE (09:51)
[2022-02-25] MEDS ORDERED: NS 100 ML IV 100 ML ONE (09:52)
[2022-02-25] MEDS ORDERED: XYLOCAINE JELLY TOP ONE (10:31)
[2022-02-25] MEDS ORDERED: SUPRANE ONE (10:31)
[2022-02-25] MEDS ORDERED: BACTROBAN TOPICAL OINT ONE (10:59)
[2022-02-25] MEDS: VSL#3 PO SCH (14:12)
[2022-02-25] MEDS: LOVENOX INJ 40 MG SYR SC SCH (14:13)
[2022-02-25] MEDS: NORVASC TAB 5 MG PO SCH (14:13)
[2022-02-25] MEDS: BENICAR TAB 40 MG PO SCH (14:14)
[2022-02-25] MEDS: BACTRIM DS TAB PO SCH ×2 (14:14→21:36)
[2022-02-25 15:12] LABS: RED BLOOD COUNT 2.78 X10^6/uL (4.7-6.0)
[2022-02-25 15:37] LABS: BASOPHILS # (AUTO) 0.1 X10^3/uL (0.0-0.1); EOSINOPHILS % (AUTO) 0.3 % (0.9-2.9); HEMATOCRIT 24.1 % (42.0-54.0); LYMPHOCYTES # (AUTO) 3.6 X10^3/uL (1.3-2.9); LYMPHOCYTES % (AUTO) 56.7 % (21.0-51.0); MEAN CORPUSCULAR HEMOGLOBIN 30.4 pg (27.0-34.0); MEAN CORPUSCULAR HGB CONC 35.1 g/dL (33.0-35.0); MEAN CORPUSCULAR VOLUME 86.6 fL (80.0-100.0); MEAN PLATELET VOLUME 7.9 fL (7.4-11.0); MONOCYTES # (AUTO) 0.9 x10^3/uL (0.3-0.8); MONOCYTES % (AUTO) 13.7 % (0.0-13.0); NEUTROPHILS # (AUTO) 1.8 x10^3/uL (2.2-4.8); NEUTROPHILS % (AUTO) 28.3 % (42.0-75.0); RED CELL DISTRIBUTION WIDTH 21.5 % (11.6-16.5); WHITE BLOOD COUNT 6.4 X10^3/uL (3.6-10.0)
[2022-02-25 15:47] LABS: HEMOGLOBIN 8.5 g/dL (13.5-18.0)
[2022-02-25 16:05] LABS: ANISOCYTOSIS 1+; PLATELET MORPHOLOGY COMMENT NORMAL (NORMAL)
[2022-02-25 16:07] LABS: TARGET CELLS NUMEROUS
[2022-02-25 16:09] LABS: STOMATOCYTES PRESENT
[2022-02-25] MEDS ORDERED: NS 500 ML IV 500 ML IV PRN (19:20)
[2022-02-25 21:03] LABS: HCV VIRAL LOG 5.03 log IU/mL
--- NOTE | 2022-02-25 21:16 | DR.PROGNOT ---
Hospital Progress Notes - Progress Note for Day of: Progress Note Date: 02/25/22 - Chief Complaint Chief Complaint: had an episode of hypotention and moderate bleeding in the DOLLY and around the drain .. was given fluid and one unit of PC .. now his BP 150/70 .. O2 94 ..puls 80 .. O2 sat 94 .. r 22. alert and talking .. - Past Medical Family Social History Past Med/Fam/Surg Hx: No changes since H&P Allergies: Allergies No Known Drug Allergies Allergy (Verified 02/21/22 19:56) - Review Of Systems ROS: No change since H&P - Vital Signs Vital Signs: Temperature 97.4 F Pulse Rate [Right] 77 Pulse Rate 74 Respiratory Rate 23 Blood Pressure [Left Arm] 142/74 Blood Pressure 117/69 O2 Sat by Pulse Oximetry 96 - Physical Exam Oriented: Normal Eyes: Normal Ear: Normal Nose: Normal Throat: Normal Cardiovascular: Normal : Normal GI:Auscultation: Normal GI:Palpation: Other (large hepatomegaly occupying most of the abdomen ..) GI: Tenderness: Other (hepatomegaly and small umbilical hernia .. ) Mood Description: Calm Speech Pattern: Clear, Appropriate - Laboratory and Diagnostics Result Diagrams: 02/25/22 15:00 02/25/22 05:34 Labs: Laboratory WBC 6.4 X10^3/uL (3.6-10.0) 02/25/22 15:00 RBC 2.78 X10^6/uL (4.7-6.0) L 02/25/22 15:00 Hgb 8.5 g/dL (13.5-18.0) L D 02/25/22 15:00 Hct 24.1 % (42.0-54.0) L 02/25/22 15:00 MCV 86.6 fL (80.0-100.0) 02/25/22 15:00 MCH 30.4 pg (27.0-34.0) 02/25/22 15:00 MCHC 35.1 g/dL (33.0-35.0) H 02/25/22 15:00 RDW 21.5 % (11.6-16.5) H 02/25/22 15:00 Plt Count 272 X10^3/uL (150.0-450.0) 02/25/22 15:00 Plt Count Comment Adequate (ADEQUATE) 02/25/22 15:00 MPV 7.9 fL (7.4-11.0) 02/25/22 15:00 Neut % (Auto) 28.3 % (42.0-75.0) L 02/25/22 15:00 Lymph % (Auto) 56.7 % (21.0-51.0) H 02/25/22 15:00 [place] % (Auto) 13.7 % (0.0-13.0) H 02/25/22 15:00 Eos % (Auto) 0.3 % (0.9-2.9) L 02/25/22 15:00 Baso % (Auto) 1.0 % (0.2-1.0) 02/25/22 15:00 Neut # (Auto) 1.8 x10^3/uL (2.2-4.8) L 02/25/22 15:00 Lymph # (Auto) 3.6 X10^3/uL (1.3-2.9) H 02/25/22 15:00 [place] # (Auto) 0.9 x10^3/uL (0.3-0.8) H 02/25/22 15:00 Eos # (Auto) 0.0 x10^3/uL (0.0-0.2) 02/25/22 15:00 Baso # (Auto) 0.1 X10^3/uL (0.0-0.1) 02/25/22 15:00 Absolute Nucleated RBC 0.1 /100WBC 02/25/22 15:00 Total Counted 100 02/24/22 05:29 Neutrophils % (Manual) 77 % (39-76) H 02/24/22 05:29 Lymphocytes % (Manual) 16 % (13-43) 02/24/22 05:29 Monocytes % (Manual) 5 % (4-9) 02/24/22 05:29 Eosinophils % (Manual) 2 % (0-6) 02/24/22 05:29 Plt Morphology Comment Normal (NORMAL) 02/25/22 15:00 RBC Morphology Abnormal (NORMAL) 02/25/22 15:00 Anisocytosis 1+ A 02/25/22 15:00 Target Cells Numerous 02/25/22 15:00 Ovalocytes 3+ A 02/23/22 05:45 Stomatocytes Present 02/25/22 15:00 PT 15.4 SECONDS (11.8-14.3) 02/25/22 07:50 INR Target Range - 02/25/22 07:50 INR 1.27 (0.8-1.3) 02/25/22 07:50 D-Dimer 2.07 ug/ml (0.0-0.57) H 02/21/22 19:50 Sample Site Rrad 02/21/22 20:03 ABG pH 7.580 (7.35-7.45) H* 02/21/22 20:03 ABG pCO2 29.0 mmHg (35.0-45.0) L 02/21/22 20:03 ABG pO2 53.0 mmHg (80.0-100.0) L 02/21/22 20:03 ABG HCO3 27.2 mmol/L (22-26) H 02/21/22 20:03 ABG O2 Saturation 92.0 % (90-100) 02/21/22 20:03 ABG Base Excess 5.8 mmol/L (-2.0-2.0) H 02/21/22 20:03 Giovanni Test Pos 02/21/22 20:03 A-a Gradient 60.0 mmHg 02/21/22 20:03 FiO2 21.0 02/21/22 20:03 Blood Gas Comments Antonella well-mtf 02/21/22 20:03 Sodium 130 mmol/L (136-145) L 02/25/22 05:34 Corrected Sodium TNP 02/25/22 05:34 Potassium 4.3 mmol/L (3.5-5.1) 02/25/22 05:34 Chloride 99 mmol/L (98-107) 02/25/22 05:34 Carbon Dioxide 24.5 mmol/L (21-32) 02/25/22 05:34 BUN 14 mg/dL (7-18) 02/25/22 05:34 Creatinine 1.09 mg/dL (0.70-1.30) 02/25/22 05:34 Est GFR (MDRD) Af Amer > 60 (>60) 02/25/22 05:34 Est GFR (MDRD) Non-Af > 60 (>60) 02/25/22 05:34 Glucose 84 mg/dL (65-99) 02/25/22 05:34 Calcium 7.6 mg/dL (8.5-10.1) L 02/25/22 05:34 Corrected Calcium 9.2 mg/dL (8.5-10.1) 02/25/22 05:34 Iron 104 ug/dL (50-175) 02/22/22 06:46 Transferrin 220 mg/dL (202-364) 02/22/22 06:46 Ferritin 528 ng/mL (26-388) H 02/22/22 06:46 Total Bilirubin 3.80 mg/dL (0.2-1.0) H 02/25/22 05:34 AST 182 Units/L (15-37) H 02/25/22 05:34 ALT 124 Units/L (12-78) H 02/25/22 05:34 Alkaline Phosphatase 372 Units/L (46-116) H 02/25/22 05:34 Creatine Kinase 209 Units/L (39-308) 02/21/22 19:50 Troponin I High Sens 14.9 ng/L (4.0-60.0) 02/21/22 19:50 Total Protein 5.5 g/dL (6.4-8.2) L 02/25/22 05:34 Albumin 2.0 g/dL (3.4-5.0) L 02/25/22 05:34 Globulin 3.5 g/dL (2.5-4.5) 02/25/22 05:34 Albumin/Globulin Ratio 0.6 Ratio (1.1-2.1) L 02/25/22 05:34 Vitamin B12 1218 pg/mL (193-986) H 02/22/22 06:46 Folate 14.2 ng/mL (>8.6) 02/22/22 06:46 Specimen Type Clean catch urine 02/23/22 05:52 Urine Color Lurdes (YELLOW) 02/23/22 05:52 Urine Appearance Hazy (CLEAR) 02/23/22 05:52 Urine pH 6.0 (5.0 - 8.0) 02/23/22 05:52 Ur Specific [place] 1.020 (1.000-1.030) 02/23/22 05:52 Urine Protein 3+ (NEGATIVE) 02/23/22 05:52 Urine Glucose (UA) Negative (NEGATIVE) 02/23/22 05:52 Urine Ketones 1+ (NEGATIVE) 02/23/22 05:52 Urine Blood 2+ (NEGATIVE) 02/23/22 05:52 Urine Nitrite Negative (NEGATIVE) 02/23/22 05:52 Urine Bilirubin 2+ (NEGATIVE) 02/23/22 05:52 Urine Urobilinogen 2+ (NORMAL) 02/23/22 05:52 Ur Leukocyte Esterase 1+ (NEGATIVE) 02/23/22 05:52 Urine RBC 3-5 /HPF (0-3) A 02/23/22 05:52 Urine WBC 0-2 /HPF (0-5) 02/23/22 05:52 Ur Squamous Epith Cells Rare /HPF (NEGATIVE) 02/23/22 05:52 Amorphous Sediment 1+ /HPF (NEGATIVE) 02/23/22 05:52 Urine Bacteria Trace /HPF (NEGATIVE) 02/23/22 05:52 Ur Culture Indicated? No/not indicated 02/23/22 05:52 Stool Description 250g liquid brown 02/22/22 20:01 Stl Occult Blood (IFOB) Positive (NEGATIVE) A 02/22/22 20:01 SARS-CoV-2 (PCR) Negative (NEGATIVE) 02/22/22 00:19 Influenza Type A (PCR) Negative (NEGATIVE) 02/22/22 00:19 Influenza Type B (PCR) Negative (NEGATIVE) 02/22/22 00:19 RSV (PCR) Negative (NEGATIVE) 02/22/22 00:19 Tissue Pathology To follow 02/25/22 11:01 Blood Type AB POSITIVE 02/25/22 17:03 Antibody Screen Negative 02/25/22 17:03 Crossmatch See Detail 02/25/22 17:03 - Assessment and Plan 2: hepatomegaly with multiple nodularity most propably malignancy. anemia and post op bleeding from needle Bx .. COPD . on IVF, . transfusion as needed .. not candidate for further surgery ..
[2022-02-25] MEDS: MIRALAX POWDER (1 DOSE 17 G) PO SCH (21:36)
[2022-02-25] MEDS: COLACE CAP 100 MG PO SCH (21:36)
[2022-02-25] MEDS: ATIVAN TAB 0.5 MG PO PRN (21:45)
[2022-02-25] MEDS: MORPHINE SULFATE INJ 2 MG INJ IVP PRN (22:35)
[2022-02-26] MEDS: PROVENTIL NEB TX 0.083% 2.5MG/ 3ML NEB SCH ×2 (00:55→05:50)
[2022-02-26] MEDS: D5 1/2 NS 1,000 ML 1,000 ML IV SCH ×3 (01:47→18:56)
[2022-02-26 02:49] LABS: HEMATOCRIT 29.7 % (42.0-54.0); HEMOGLOBIN 10.5 g/dL (13.5-18.0)
[2022-02-26] MEDS: DILAUDID INJ IVP PRN (03:40)
[2022-02-26 05:14] LABS: ALANINE AMINOTRANSFERASE 304 Units/L (12-78); ALBUMIN 1.8 g/dL (3.4-5.0); ALKALINE PHOSPHATASE 375 Units/L (46-116); ASPARTATE AMINO TRANSFERASE 658 Units/L (15-37); BLOOD UREA NITROGEN 23 mg/dL (7-18); CALCIUM 7.6 mg/dL (8.5-10.1); CARBON DIOXIDE 23.3 mmol/L (21-32); CHLORIDE 102 mmol/L (98-107); COR CA(FOR HYPOALB) 9.4 mg/dL (8.5-10.1); CREATININE 1.35 mg/dL (0.70-1.30); SODIUM 132 mmol/L (136-145); TOTAL PROTEIN 5.1 g/dL (6.4-8.2); eGFR NON BLACK RACES 55 (>60)
[2022-02-26 05:36] LABS: BASOPHILS # (AUTO) 0.3 X10^3/uL (0.0-0.1); BASOPHILS % (AUTO) 2.6 % (0.2-1.0); EOSINOPHILS # (AUTO) 0.1 x10^3/uL (0.0-0.2); EOSINOPHILS % (AUTO) 0.8 % (0.9-2.9); HEMATOCRIT 29.8 % (42.0-54.0); HEMOGLOBIN 10.5 g/dL (13.5-18.0); LYMPHOCYTES # (AUTO) 5.3 X10^3/uL (1.3-2.9); LYMPHOCYTES % (AUTO) 50.6 % (21.0-51.0); MEAN CORPUSCULAR HGB CONC 35.1 g/dL (33.0-35.0); MEAN CORPUSCULAR VOLUME 85.4 fL (80.0-100.0); MEAN PLATELET VOLUME 8.3 fL (7.4-11.0); MONOCYTES # (AUTO) 0.9 x10^3/uL (0.3-0.8); MONOCYTES % (AUTO) 8.2 % (0.0-13.0); NEUTROPHILS # (AUTO) 3.9 x10^3/uL (2.2-4.8); NEUTROPHILS % (AUTO) 37.8 % (42.0-75.0); RED BLOOD COUNT 3.49 X10^6/uL (4.7-6.0); RED CELL DISTRIBUTION WIDTH 20.7 % (11.6-16.5); WHITE BLOOD COUNT 10.5 X10^3/uL (3.6-10.0)
[2022-02-26 05:46] LABS: ANISOCYTOSIS 1+; PLATELET MORPHOLOGY COMMENT NORMAL (NORMAL); STOMATOCYTES PRESENT; TARGET CELLS PRESENT
[2022-02-26] MEDS ORDERED: Atrovent NEB TX 0.02% ONE (06:19)
--- NOTE | 2022-02-26 06:32 | DR.PROGNOT ---
Hospital Progress Notes - Progress Note for Day of: Progress Note Date: 02/26/22 - Chief Complaint Chief Complaint: stable VS .. moderate bloody drainage in DOLLY . Hgb10 . mild elevated BUN/Creat . had 2 units of PC . - Past Medical Family Social History Past Med/Fam/Surg Hx: No changes since H&P Allergies: Allergies No Known Drug Allergies Allergy (Verified 02/21/22 19:56) - Review Of Systems ROS: No change since H&P - Vital Signs Vital Signs: Temperature 97.7 F Pulse Rate [Right] 77 Pulse Rate 81 Respiratory Rate 21 Blood Pressure [Left Arm] 142/74 Blood Pressure 118/74 O2 Sat by Pulse Oximetry 97 - Physical Exam Oriented: Normal Eyes: Normal Ear: Normal Nose: Normal Throat: Normal Cardiovascular: Normal : Normal GI:Auscultation: Normal GI:Palpation: Liver Enlarged (large hepatomegaly with possible malignancy .), Other (large hepatomegaly occupying most of the abdomen ..) GI: Tenderness: Other (hepatomegaly and small umbilical hernia .. ) Mood Description: Calm Speech Pattern: Delayed, Slurred - Laboratory and Diagnostics Result Diagrams: 02/26/22 04:36 02/26/22 04:36 Labs: Laboratory WBC 10.5 X10^3/uL (3.6-10.0) H 02/26/22 04:36 RBC 3.49 X10^6/uL (4.7-6.0) L 02/26/22 04:36 Hgb 10.5 g/dL (13.5-18.0) L 02/26/22 04:36 Hct 29.8 % (42.0-54.0) L 02/26/22 04:36 MCV 85.4 fL (80.0-100.0) 02/26/22 04:36 MCH 30.0 pg (27.0-34.0) 02/26/22 04:36 MCHC 35.1 g/dL (33.0-35.0) H 02/26/22 04:36 RDW 20.7 % (11.6-16.5) H 02/26/22 04:36 Plt Count 283 X10^3/uL (150.0-450.0) 02/26/22 04:36 Plt Count Comment Adequate (ADEQUATE) 02/26/22 04:36 MPV 8.3 fL (7.4-11.0) 02/26/22 04:36 Neut % (Auto) 37.8 % (42.0-75.0) L 02/26/22 04:36 Lymph % (Auto) 50.6 % (21.0-51.0) 02/26/22 04:36 [place] % (Auto) 8.2 % (0.0-13.0) 02/26/22 04:36 Eos % (Auto) 0.8 % (0.9-2.9) L 02/26/22 04:36 Baso % (Auto) 2.6 % (0.2-1.0) H 02/26/22 04:36 Neut # (Auto) 3.9 x10^3/uL (2.2-4.8) 02/26/22 04:36 Lymph # (Auto) 5.3 X10^3/uL (1.3-2.9) H 02/26/22 04:36 [place] # (Auto) 0.9 x10^3/uL (0.3-0.8) H 02/26/22 04:36 Eos # (Auto) 0.1 x10^3/uL (0.0-0.2) 02/26/22 04:36 Baso # (Auto) 0.3 X10^3/uL (0.0-0.1) H 02/26/22 04:36 Absolute Nucleated RBC 0.2 /100WBC 02/26/22 04:36 Total Counted 100 02/24/22 05:29 Neutrophils % (Manual) 77 % (39-76) H 02/24/22 05:29 Lymphocytes % (Manual) 16 % (13-43) 02/24/22 05:29 Monocytes % (Manual) 5 % (4-9) 02/24/22 05:29 Eosinophils % (Manual) 2 % (0-6) 02/24/22 05:29 Plt Morphology Comment Normal (NORMAL) 02/26/22 04:36 RBC Morphology Abnormal (NORMAL) 02/26/22 04:36 Anisocytosis 1+ A 02/26/22 04:36 Target Cells Present 02/26/22 04:36 Ovalocytes 3+ A 02/23/22 05:45 Stomatocytes Present 02/26/22 04:36 PT 15.4 SECONDS (11.8-14.3) 02/25/22 07:50 INR Target Range - 02/25/22 07:50 INR 1.27 (0.8-1.3) 02/25/22 07:50 D-Dimer 2.07 ug/ml (0.0-0.57) H 02/21/22 19:50 Sample Site Rrad 02/21/22 20:03 ABG pH 7.580 (7.35-7.45) H* 02/21/22 20:03 ABG pCO2 29.0 mmHg (35.0-45.0) L 02/21/22 20:03 ABG pO2 53.0 mmHg (80.0-100.0) L 02/21/22 20:03 ABG HCO3 27.2 mmol/L (22-26) H 02/21/22 20:03 ABG O2 Saturation 92.0 % (90-100) 02/21/22 20:03 ABG Base Excess 5.8 mmol/L (-2.0-2.0) H 02/21/22 20:03 Giovanni Test Pos 02/21/22 20:03 A-a Gradient 60.0 mmHg 02/21/22 20:03 FiO2 21.0 02/21/22 20:03 Blood Gas Comments Antonella well-mtf 02/21/22 20:03 Sodium 132 mmol/L (136-145) L 02/26/22 04:36 Corrected Sodium TNP 02/26/22 04:36 Potassium 5.7 mmol/L (3.5-5.1) H 02/26/22 04:36 Chloride 102 mmol/L (98-107) 02/26/22 04:36 Carbon Dioxide 23.3 mmol/L (21-32) 02/26/22 04:36 BUN 23 mg/dL (7-18) H 02/26/22 04:36 Creatinine 1.35 mg/dL (0.70-1.30) H 02/26/22 04:36 Est GFR (MDRD) Af Amer > 60 (>60) 02/26/22 04:36 Est GFR (MDRD) Non-Af 55 (>60) L 02/26/22 04:36 Glucose 76 mg/dL (65-99) 02/26/22 04:36 Calcium 7.6 mg/dL (8.5-10.1) L 02/26/22 04:36 Corrected Calcium 9.4 mg/dL (8.5-10.1) 02/26/22 04:36 Iron 104 ug/dL (50-175) 02/22/22 06:46 Transferrin 220 mg/dL (202-364) 02/22/22 06:46 Ferritin 528 ng/mL (26-388) H 02/22/22 06:46 Total Bilirubin 6.10 mg/dL (0.2-1.0) H 02/26/22 04:36 AST 658 Units/L (15-37) H 02/26/22 04:36 ALT 304 Units/L (12-78) H 02/26/22 04:36 Alkaline Phosphatase 375 Units/L (46-116) H 02/26/22 04:36 Creatine Kinase 209 Units/L (39-308) 02/21/22 19:50 Troponin I High Sens 14.9 ng/L (4.0-60.0) 02/21/22 19:50 Total Protein 5.1 g/dL (6.4-8.2) L 02/26/22 04:36 Albumin 1.8 g/dL (3.4-5.0) L 02/26/22 04:36 Globulin 3.3 g/dL (2.5-4.5) 02/26/22 04:36 Albumin/Globulin Ratio 0.5 Ratio (1.1-2.1) L 02/26/22 04:36 Vitamin B12 1218 pg/mL (193-986) H 02/22/22 06:46 Folate 14.2 ng/mL (>8.6) 02/22/22 06:46 Specimen Type Clean catch urine 02/23/22 05:52 Urine Color [place] (YELLOW) 02/23/22 05:52 Urine Appearance Hazy (CLEAR) 02/23/22 05:52 Urine pH 6.0 (5.0 - 8.0) 02/23/22 05:52 Ur Specific [place] 1.020 (1.000-1.030) 02/23/22 05:52 Urine Protein 3+ (NEGATIVE) 02/23/22 05:52 Urine Glucose (UA) Negative (NEGATIVE) 02/23/22 05:52 Urine Ketones 1+ (NEGATIVE) 02/23/22 05:52 Urine Blood 2+ (NEGATIVE) 02/23/22 05:52 Urine Nitrite Negative (NEGATIVE) 02/23/22 05:52 Urine Bilirubin 2+ (NEGATIVE) 02/23/22 05:52 Urine Urobilinogen 2+ (NORMAL) 02/23/22 05:52 Ur Leukocyte Esterase 1+ (NEGATIVE) 02/23/22 05:52 Urine RBC 3-5 /HPF (0-3) A 02/23/22 05:52 Urine WBC 0-2 /HPF (0-5) 02/23/22 05:52 Ur Squamous Epith Cells Rare /HPF (NEGATIVE) 02/23/22 05:52 Amorphous Sediment 1+ /HPF (NEGATIVE) 02/23/22 05:52 Urine Bacteria Trace /HPF (NEGATIVE) 02/23/22 05:52 Ur Culture Indicated? No/not indicated 02/23/22 05:52 Stool Description 250g liquid brown 02/22/22 20:01 Stl Occult Blood (IFOB) Positive (NEGATIVE) A 02/22/22 20:01 SARS-CoV-2 (PCR) Negative (NEGATIVE) 02/22/22 00:19 Influenza Type A (PCR) Negative (NEGATIVE) 02/22/22 00:19 Influenza Type B (PCR) Negative (NEGATIVE) 02/22/22 00:19 RSV (PCR) Negative (NEGATIVE) 02/22/22 00:19 Tissue Pathology To follow 02/25/22 11:01 Blood Type AB POSITIVE 02/25/22 17:03 Antibody Screen Negative 02/25/22 17:03 Crossmatch See Detail 02/25/22 17:03 - Assessment and Plan 2: hepatomegaly with multiple nodularity most propably malignancy. anemia and p ost op bleeding from needle Bx .. COPD . on IVF, . transfusion as needed .. not candidate for further surgery ..
[2022-02-26] MEDS: Atrovent NEB TX 0.02% NEB SCH ×5 (08:50→21:00)
[2022-02-26] MEDS: PULMICORT NEB TX 0.5 MG NEB SCH ×2 (08:50→21:00)
[2022-02-26] MEDS: BACTRIM DS TAB PO SCH ×2 (09:44→20:05)
[2022-02-26] MEDS: BENICAR TAB 40 MG PO SCH ×2 (09:45→13:25)
[2022-02-26] MEDS: VSL#3 PO SCH (09:45)
[2022-02-26] MEDS: LOVENOX INJ 40 MG SYR SC SCH (09:46)
[2022-02-26 10:44] LABS: BLOOD UREA NITROGEN 27 mg/dL (7-18); CALCIUM 7.7 mg/dL (8.5-10.1); CARBON DIOXIDE 22.8 mmol/L (21-32); CHLORIDE 101 mmol/L (98-107); CREATININE 1.41 mg/dL (0.70-1.30); SODIUM 130 mmol/L (136-145); eGFR NON BLACK RACES 52 (>60)
[2022-02-26] MEDS ORDERED: CHRONULAC PO ONE ×2 (11:12→16:50)
[2022-02-26] MEDS ORDERED: KAYEXALATE SUSP PO ONE ×2 (12:00→17:00)
[2022-02-26] MEDS: NORVASC TAB 5 MG PO SCH (13:25)
[2022-02-26 16:20] LABS: MEAN CORPUSCULAR HEMOGLOBIN 29.8 pg (27.0-34.0)
[2022-02-26 16:24] LABS: MEAN CORPUSCULAR HGB CONC 35.1 g/dL (33.0-35.0)
[2022-02-26 16:33] LABS: BASOPHILS # (AUTO) 0.1 X10^3/uL (0.0-0.1); BASOPHILS % (AUTO) 1.1 % (0.2-1.0); EOSINOPHILS % (AUTO) 0.4 % (0.9-2.9); HEMATOCRIT 31.3 % (42.0-54.0); LYMPHOCYTES # (AUTO) 5.5 X10^3/uL (1.3-2.9); LYMPHOCYTES % (AUTO) 48.9 % (21.0-51.0); MEAN CORPUSCULAR VOLUME 84.9 fL (80.0-100.0); MEAN PLATELET VOLUME 8.2 fL (7.4-11.0); MONOCYTES # (AUTO) 0.6 x10^3/uL (0.3-0.8); MONOCYTES % (AUTO) 5.4 % (0.0-13.0); NEUTROPHILS # (AUTO) 4.9 x10^3/uL (2.2-4.8); NEUTROPHILS % (AUTO) 44.2 % (42.0-75.0); RED BLOOD COUNT 3.69 X10^6/uL (4.7-6.0); RED CELL DISTRIBUTION WIDTH 20.9 % (11.6-16.5); WHITE BLOOD COUNT 11.2 X10^3/uL (3.6-10.0)
[2022-02-26 16:37] LABS: ALANINE AMINOTRANSFERASE 576 Units/L (12-78); ALKALINE PHOSPHATASE 473 Units/L (46-116); BLOOD UREA NITROGEN 34 mg/dL (7-18); CALCIUM 7.9 mg/dL (8.5-10.1); CARBON DIOXIDE 19.4 mmol/L (21-32); CHLORIDE 101 mmol/L (98-107); COR CA(FOR HYPOALB) 9.5 mg/dL (8.5-10.1); CREATININE 1.71 mg/dL (0.70-1.30); SODIUM 131 mmol/L (136-145); TOTAL PROTEIN 5.4 g/dL (6.4-8.2); eGFR NON BLACK RACES 42 (>60)
[2022-02-26 16:41] LABS: ASPARTATE AMINO TRANSFERASE 1871 Units/L (15-37)
[2022-02-26 17:03] LABS: PLATELET MORPHOLOGY COMMENT NORMAL (NORMAL)
[2022-02-26 17:04] LABS: ANISOCYTOSIS 1+; TARGET CELLS PRESENT
[2022-02-26 17:05] LABS: STOMATOCYTES PRESENT
[2022-02-26 17:06] LABS: BURR CELLS PRESENT
[2022-02-26] MEDS: MORPHINE SULFATE INJ 2 MG INJ IVP PRN (18:24)
[2022-02-26] MEDS: ATIVAN TAB 0.5 MG PO PRN (18:56)
[2022-02-26] MEDS: MIRALAX POWDER (1 DOSE 17 G) PO SCH (20:05)
[2022-02-26] MEDS: COLACE CAP 100 MG PO SCH (20:05)
[2022-02-26] MEDS ORDERED: VALIUM INJ IVP ONE (21:14)
[2022-02-26] MEDS ORDERED: LASIX IVP ONE ×2 (21:53→21:55)
[2022-02-26 22:32] LABS: BILIRUBIN,URINE 2+ (NEGATIVE); BLOOD/HEMOGLOBIN,URINE 4+ (NEGATIVE); GLUCOSE, URINE NEGATIVE (NEGATIVE); KETONES,URINE NEGATIVE (NEGATIVE); LEUKOCYTE ESTERASE ,URINE 1+ (NEGATIVE); NITRITES,URINE NEGATIVE (NEGATIVE); PROTEIN,URINE 2+ (NEGATIVE); UROBILINOGEN,URINE 3+ (NORMAL)
[2022-02-26 22:39] LABS: APPEARANCE,URINE CLEAR (CLEAR); BACTERIA,URINE NEGATIVE /HPF (NEGATIVE); COLOR,URINE AMBER (YELLOW); RBC,URINE NONE SEEN /HPF (0-3); SQUAMOUS EPITHELIAL CELL,UR RARE /HPF (NEGATIVE)
--- NOTE | 2022-02-26 23:48 | RAD ---
STUDY: FRONTAL VIEW CHESTCOMPARISON: February 21, 2022HISTORY: HYPOXIA, RALESFINDINGS:Multifocal alveolar airspace disease is seen in the right mid and right lower lung zone which was not present on the prior examination in therefore would be classified as acute airspace disease such as infection.The heart size is within normal limits.The mediastinum is unremarkable.There is no evidence of pleural effusion or gross pneumothorax.The trachea is midline.IMPRESSION:Multifocal alveolar airspace disease is seen in the right mid and right lower lung zone which was not present on the prior examination in therefore would be classified as acute airspace disease such as infection.Electronically signed by: Cliff Arshad (Feb 26, 2022 23:47:19)
[2022-02-27 01:35] LABS: ABG BASE EXCESS -10.7 mmol/L (-2.0-2.0)
[2022-02-27 01:41] LABS: ABG HCO3 17.2 mmol/L (22-26)
[2022-02-27 01:43] LABS: ABG ALLEN TEST POS
[2022-02-27] MEDS: AVELOX IV 400 MG/250 ML BAG 400 MG/250 ML PIGGYBACK IV SCH (02:30)
[2022-02-27] MEDS: Atrovent NEB TX 0.02% NEB SCH ×6 (03:02→20:47)
[2022-02-27] MEDS: SOLU-Medrol 40 MG VIAL IVP SCH ×3 (03:08→19:56)
[2022-02-27] MEDS: D5 1/2 NS 1,000 ML 1,000 ML IV SCH (03:08)
[2022-02-27] MEDS ORDERED: NS 1,000 ML IV 1,000 ML IV ONE ×2 (03:37→23:40)
[2022-02-27 04:07] LABS: BASOPHILS % (AUTO) 0 % (0.2-1.0); EOSINOPHILS % (AUTO) 0.4 % (0.9-2.9); HEMATOCRIT 26.3 % (42.0-54.0); HEMOGLOBIN 9.3 g/dL (13.5-18.0); LYMPHOCYTES % (AUTO) 58.5 % (21.0-51.0); MEAN CORPUSCULAR HGB CONC 35.2 g/dL (33.0-35.0); MEAN CORPUSCULAR VOLUME 85.3 fL (80.0-100.0); MEAN PLATELET VOLUME 8.5 fL (7.4-11.0); MONOCYTES # (AUTO) 0.4 x10^3/uL (0.3-0.8); MONOCYTES % (AUTO) 12.3 % (0.0-13.0); NEUTROPHILS % (AUTO) 28.8 % (42.0-75.0); RED BLOOD COUNT 3.08 X10^6/uL (4.7-6.0)
[2022-02-27 04:13] LABS: ALBUMIN 1.7 g/dL (3.4-5.0); CALCIUM 7.1 mg/dL (8.5-10.1); CARBON DIOXIDE 18.2 mmol/L (21-32); COR CA(FOR HYPOALB) 8.9 mg/dL (8.5-10.1); CREATININE 2.5 mg/dL (0.70-1.30); TOTAL PROTEIN 4.5 g/dL (6.4-8.2)
[2022-02-27 04:25] LABS: WHITE BLOOD COUNT 3.6 X10^3/uL (3.6-10.0)
[2022-02-27 04:26] LABS: PLATELET MORPHOLOGY COMMENT NORMAL (NORMAL); POIKILOCYTOSIS PRESENT
[2022-02-27 04:27] LABS: ANISOCYTOSIS 1+; BURR CELLS PRESENT; STOMATOCYTES PRESENT; TARGET CELLS PRESENT
[2022-02-27 05:26] LABS: ABG BASE EXCESS -12.3 mmol/L (-2.0-2.0)
[2022-02-27 05:28] LABS: ABG HCO3 14.2 mmol/L (22-26)
[2022-02-27 05:29] LABS: ABG ALLEN TEST POS
[2022-02-27] MEDS ORDERED: NS 250 ML IV 250 ML IV ONE ×2 (06:38→08:19)
[2022-02-27] MEDS: PULMICORT NEB TX 0.5 MG NEB SCH ×2 (08:30→20:47)
[2022-02-27] MEDS: LOVENOX INJ 40 MG SYR SC SCH (08:43)
[2022-02-27] MEDS: MORPHINE SULFATE INJ 2 MG INJ IVP PRN ×3 (08:45→22:20)
[2022-02-27] MEDS: VSL#3 PO SCH (11:13)
[2022-02-27] MEDS ORDERED: AQUA-MEPHYTON ADULT INJ ONE (11:19)
[2022-02-27] MEDS: NS IV ONE ×2 (11:38→11:39)
[2022-02-27] MEDS: THIAMINE HCL INJ IVP SCH ×2 (11:38→21:13)
[2022-02-27] MEDS: ASCORBIC ACID INJ MULTI-DOSE VIAL 3,000 MG in NS 50 ML IV 50 ML IV SCH ×3 (11:38→21:13)
[2022-02-27] MEDS: AQUA MEPHYTON ADULT IV ONE ×2 (11:38→11:39)
[2022-02-27] MEDS: NS 1,000 ML IV 1,000 ML IV SCH ×2 (11:38→19:56)
[2022-02-27] MEDS: DILAUDID INJ IVP PRN (12:29)
[2022-02-27 14:49] LABS: HEMATOCRIT 32.5 % (42.0-54.0)
[2022-02-27 14:50] LABS: HEMOGLOBIN 11.3 g/dL (13.5-18.0)
[2022-02-27] MEDS: MIRALAX POWDER (1 DOSE 17 G) PO SCH (20:17)
[2022-02-27] MEDS: COLACE CAP 100 MG PO SCH (20:17)
[2022-02-27] MEDS ORDERED: LEVOPHED 8 MG/250 ML IV *PREMIX 8 MG/250 ML PLAST..BAG IV PRN (23:40)
[2022-02-27] MEDS ORDERED: LEVOPHED 8 MG/250 ML IV *PREMIX 8 MG/250 ML PLAST..BAG IV ONE (23:44)
[2022-02-27] MEDS ORDERED: ADRENALINE CHL INJ (ABBOJECT) IVP ONE ×2 (23:50→23:56)
[2022-02-27] MEDS ORDERED: D50W ABBOJECT SYR IV ONE (23:52)
[2022-02-27] MEDS: ADRENALINE CHL INJ (ABBOJECT) IVP ONE (23:53)
[2022-02-28] MEDS ORDERED: SODIUM BICARBONATE 8.4% INJ ADULT IVP ONE ×2 (00:01→00:22)
[2022-02-28] MEDS ORDERED: ADRENALINE CHL INJ (ABBOJECT) IVP ONE ×7 (00:11→00:26)
[2022-02-28] MEDS: ADRENALINE CHL INJ (ABBOJECT) IVP ONE (00:15)
[2022-02-28 00:49] LABS: ABG BASE EXCESS -14.1 mmol/L (-2.0-2.0); ABG HCO3 13.9 mmol/L (22-26)
[2022-02-28 00:50] LABS: ABG ALLEN TEST POS
--- NOTE | 2022-02-28 00:59 | RAD ---
STUDY: CHEST, 1 VIEWCOMPARISON: 02/26/2022HISTORY: ETT PLACEMENTFINDINGS:The tip of the endotracheal tube is 4 cm above the el.Progressively worsening alveolar airspace disease is now seen throughout the right lung and left lower lung zone. There is also increased airspace disease present in the left mid and left upper lung zone.No pleural effusion or pneumothorax is seen. The cardiomediastinal contour is stable.IMPRESSION:The tip of the endotracheal tube is 4 cm above the el.Progressively worsening alveolar airspace disease is now seen throughout the right lung and left lower lung zone. There is also increased airspace disease present in the left mid and left upper lung zone.Electronically signed by: Cliff Arshad (Feb 28, 2022 00:57:35)
[2022-02-28] MEDS: Atrovent NEB TX 0.02% NEB SCH (01:03)
[2022-02-28 02:16] VITALS: BP 148/94
[2022-02-28] MEDS: AVELOX IV 400 MG/250 ML BAG 400 MG/250 ML PIGGYBACK IV SCH (02:17)
[2022-02-28] MEDS: ASCORBIC ACID INJ MULTI-DOSE VIAL 3,000 MG in NS 50 ML IV 50 ML IV SCH (03:39)
[2022-02-28] MEDS: SOLU-Medrol 40 MG VIAL IVP SCH (03:39)
[2022-02-28] MEDS: NS 1,000 ML IV 1,000 ML IV SCH (03:40)
== END 2022-02-28 10:00 | disposition expired | DRG 435 ==
LOC: ER 19:33 → MED/SURG 19:33 → ICU 02-25 17:38
PROVIDERS: ADMIT Obstetrics & Gynecology Obstetrics; ATTEND Obstetrics & Gynecology Obstetrics
PROC: DIAGLAP (2022-02-25 11:30)
DX: D62 Acute posthemorrhagic anemia; K59.09 Other constipation; Y95 Nosocomial condition; I87.2 Venous insufficiency (chronic) (peripheral); C22.0 Liver cell carcinoma; R06.02 Shortness of breath; K80.00 Calculus of gallbladder with acute cholecystitis without obstruction; I46.9 Cardiac arrest, cause unspecified; J44.1 Chronic obstructive pulmonary disease with (acute) exacerbation; I95.9 Hypotension, unspecified; I11.0 Hypertensive heart disease with heart failure; B18.2 Chronic viral hepatitis C; J18.9 Pneumonia, unspecified organism; E87.1 Hypo-osmolality and hyponatremia; E87.5 Hyperkalemia; E27.40 Unspecified adrenocortical insufficiency; I50.9 Heart failure, unspecified; Z20.822 Contact with and (suspected) exposure to COVID-19; R16.0 Hepatomegaly, not elsewhere classified; R47.81 Slurred speech; F17.210 Nicotine dependence, cigarettes, uncomplicated